=== PATIENT | female | born 1995 | race African-American/Black ===

== ENCOUNTER 2020-12-03 06:28 | Emergency (ER) | payer OTHER ==
--- NOTE | 2020-12-03 06:44 | ED Physician Documentation ---
PD HPI NECK PAIN - Stated complaint Stated Complaint: NECK PX - Chief complaint Chief Complaint: Trauma Hd/Nk - History obtained from History obtained from: Patient - History of Present Illness Timing - onset: Today (awoke with left upper neck sharp pain with ROM this morning. No noted injury. Feeling well otherwise. Pain goes to suprascapular area. No numbness nor weakness of arm. No headache. Hurts with ROM.) Timing - duration: Hours Timing - details: Abrupt onset, Still present Location: Upper, Left Quality: Pain, Sharp Associated symptoms: No: Fever, Weakness, Numbness Worsened by: Movement, Palpation Contributing factors: No: Lifting, Twisting, Trauma Similar symptoms before: Has not had sx before Recently seen: Not recently seen Review of Systems Constitutional: denies: Fever, Chills Nose: denies: Rhinorrhea / runny nose, Congestion Throat: denies: Sore throat Respiratory: denies: Cough Skin: denies: Rash, Lesions Neurologic: denies: Focal weakness, Numbness PD PAST MEDICAL HISTORY - Past Medical History Past Medical History: No - Present Medications Home Medications: Ambulatory Orders Medication Instructions Recorded Confirmed HYDROcod/ACETAM 5/325 [[place] 5/325] 1 ea PO Q6H PRN #10 tablet 12/03/20 tiZANidine [Zanaflex] 4 mg PO Q8H PRN #20 tablet 12/03/20 - Allergies Allergies/Adverse Reactions: Allergies Allergy/AdvReac Type Severity Reaction Status Date / Time No Known Drug Allergies Allergy Verified 12/03/20 06:35 PD ED PE NORMAL - Vitals Vital signs reviewed: Yes - General General: Alert and oriented X 3, No acute distress (appearrs okay with head still. Winces some when turning to the left and upward with head. ), Well developed/nourished - Neck Neck: Supple, no meningeal sign, No bony TTP, No adenopathy, Other (tender left upper neck muscle at trapezius insertion area and to left side medial suprascapular area. No redness, rash nor sores. Not tender to light touch. ) - Cardiac Cardiac: RRR, No murmur - Respiratory Respiratory: Clear bilaterally - Derm Derm: Normal color, Warm and dry, No rash - Neuro Neuro: Alert and oriented X 3, No motor deficit, No sensory deficit Results - Vitals Vitals: Vital Signs - 24 hr 12/03/20 12/03/20 06:30 06:59 Temperature 36.3 C L 36.4 C L Heart Rate 69 70 Respiratory 18 19 Rate Blood Pressure 128/53 L 128/59 L O2 Saturation 99 99 Oxygen O2 Source Room air PD MEDICAL DECISION MAKING - ED course Complexity details: considered differential (No red flags for more concerning cause. Has pain and tender trapezius insertion left side upper neck. ), d/w patient Departure - Departure Disposition: 01 Home, Self Care Clinical Impression: Acute strain of neck muscle Qualifiers: Encounter type: initial encounter Qualified Code(s): S16.1XXA - Strain of muscle, fascia and tendon at neck level, initial encounter Condition: Stable Record reviewed to determine appropriate education?: Yes Instructions: ED Sprain Strain Neck Follow-Up: [facility] [Provider Group] Prescriptions: HYDROcod/ACETAM 5/325 [[place] 5/325] 1 ea PO Q6H PRN #10 tablet PRN Reason: Pain tiZANidine [Zanaflex] 4 mg PO Q8H PRN #20 tablet PRN Reason: Spasms Comments: At this point this would seem like a muscle irritation/strain. Without any nerve root symptoms nor injury or other associated symptoms, there would not really be an indication for any labs or imaging at this time. This type of problem typically resolves in a couple of days. Continue the ibuprofen 600 to 800 mg 3 times a day with food. I would think heat and stretching would be useful for the area to decrease spasming and stiffness. Add tizanidine muscle relaxant to help with that as well. To that add Tylenol 6 every 4-6 hours for pain as well. You could add hydrocodone if needed for worse pain but I would not anticipate needing it beyond a day or 2. Off work for couple of days to allow time for improvement. Recheck if not improved well over the next couple of days or if other associated symptoms such as arm numbness or tingling, skin rash or sores, fever, other symptoms. I am prescribing a short course of narcotic pain medication for you. These are potentially dangerous and addictive medications that should be used carefully. These medications may constipate you. Take an [id number] stool softener such as docusate twice daily with plenty of water while taking these medications. If you go 24 hours without a bowel movement, take [id number] MiraLAX, per package instructions. Do not drink or drive while taking these medications. If you received narcotic or sedating medications while in the emergency department do not drive for 24 hours. Store this medication in a safe, secure place and out of reach of children. It is a violation of federal law to give or sell this medication to another person or to use in a manner other than prescribed. The ED will not refill narcotic prescriptions, including prescriptions lost or stolen. You can dispose of unwanted medications at the [facility] office or at several pharmacies such as [facility]. Forms: Activity restrictions Discharge Date/Time: 12/03/20 07:04
[2020-12-03] MEDS ORDERED: HYDROcod/ACETAM 5/325 MG TABLET PO STA (06:53)
[2020-12-03] MEDS ORDERED: methocarbamoL 500 MG TABLET PO STA (06:53)
[2020-12-03 07:01] VITALS: BP 128/59
== END 2020-12-03 07:04 | disposition home or self-care (01) ==
LOC: ED 06:28
DX: S16.1XXA Strain of muscle, fascia and tendon at neck level, initial encounter (principal); X58.XXXA Exposure to other specified factors, initial encounter
CPT/HCPCS: 99282; 99284; A9270

== ENCOUNTER 2021-11-10 21:07 | Emergency (ER) | payer OTHER ==
--- NOTE | 2021-11-10 21:49 | ED Physician Documentation ---
PD HPI SKIN - Stated complaint Stated Complaint: LUMP UNDER CHIN/PX - Chief complaint Chief Complaint: Heent - History obtained from History obtained from: Patient - History of Present Illness Timing - onset: Today Timing - details: Gradual onset Associated symptoms: No: Fever Similar symptoms before: Has not had sx before Recently seen: Not recently seen - Additional information Additional information: patients chief complaint is tender mass under chin since this morning. Patient has had mild sore throat and mild sinus congestion since yesterday. Yesterday evening, she noted some tenderness under her chin (the soft tissue under her chin midline between bony mandible) and since this morning the area has developed a firm lump (per patient) . She denies having this before. Review of Systems Constitutional: reports: Reviewed and negative Nose: reports: Congestion (mild) Throat: reports: Sore throat (mild). denies: Swollen tonsils PD PAST MEDICAL HISTORY - Past Medical History Past Medical History: No Cardiovascular: None Respiratory: None Neuro: None Endocrine/Autoimmune: None GI: None [employer]: None : None HEENT: None Psych: None Musculoskeletal: None Derm: None - Past Surgical History Past Surgical History: No - Present Medications Home Medications: Ambulatory Orders Medication Instructions Recorded Confirmed HYDROcod/ACETAM 5/325 [[place] 5/325] 1 ea PO Q6H PRN #10 tablet 12/03/20 tiZANidine [Zanaflex] 4 mg PO Q8H PRN #20 tablet 12/03/20 cephALEXin [Keflex] 500 mg PO Q6H #28 cap 11/10/21 - Allergies Allergies/Adverse Reactions: Allergies Allergy/AdvReac Type Severity Reaction Status Date / Time No Known Drug Allergies Allergy Verified 11/10/21 21:32 - Social History Does the pt smoke?: No Smoking Status: Never smoker Does the pt drink ETOH?: No Does the pt have substance abuse?: No - Immunizations Immunizations are current?: Yes - POLST Patient has POLST: No PD ED PE NORMAL - Vitals Vital signs reviewed: Yes - General General: Alert and oriented X 3, No acute distress, Well developed/nourished - HEENT HEENT: Moist mucous membranes, Pharynx benign - Neck Neck: Supple, no meningeal sign PD ED PE EXPANDED - HEENT HEENT Visual: 1 - tenderness (approximately 1 cm diameter midline nodule that is TTP without fluctuance or erythema.) Results - Vitals Vitals: Oxygen O2 Source Room air - Labs Labs: Microbiology 11/10/21 21:38 Group A Strep Throat Culture - Final Throat MIXED OROPHARYNGEAL OLIVIER PRESENT. NO BETA STREP PRESENT IN CULTURE. Laboratory Tests 11/10/21 21:38 Group A Strep Rapid Negative PD MEDICAL DECISION MAKING - ED course Complexity details: reviewed results, re-evaluated patient, considered dif ferential, d/w patient ED course: the area of concern is tender to palpation though not exquisitely tender. It is not fluctuant. There is no change in voice, patient is in NAD and nontoxic in general appearance. There are no intraoral findings nor c/o. Differential includes reactive lymph node, sialolithiasis. Abscess considered but unlikely given it is not particularly TTP nor fluctuant. Also considered are thyroglossal duct cyst, mucocele, ranula. She is given PO abx for possible reactive lymph node/early infected node, and instructed to follow up with PMD, return if worse Departure - Departure Disposition: 01 Home, Self Care Clinical Impression: Lymphadenitis Condition: Good Instructions: ED Cervical Adenitis Abx Tx Prescriptions: cephALEXin [Keflex] 500 mg PO Q6H #28 cap Comments: As we discussed, I suspect the painful/tender mass under your chin is a swollen lymph node. Typically this is because it is inflamed from draining a nearby infection. When the lymph node because this large and painful, it is prudent to prescribe an antibiotic to prevent worsening infection or complications of infection (such as abscess), and thus you are being given cephalexin (antibiotic) in the emergency department and a prescription for the same antibiotic is being electronically submitted to [facility] pharmacy in [place]. I would also consider possibility of a swollen salivary gland due to debris (stone) blocking the duct that empties the gland. The main (initial) treatment for this is simply sucking on sour candies such as lemon drops in order to stimulate salivation, hopefully leading to expulsion of the stone and resolution of the symptoms. If your symptoms worsen, consider returning to the emergency department or else following up with your primary care provider. Discharge Date/Time: 11/10/21 22:50
[2021-11-10 21:52] LABS: RAPID STREP SCREEN Negative (Negative)
[2021-11-10] MEDS ORDERED: cephALEXin 250 MG CAPSULE PO STA (22:40)
[2021-11-10 22:50] VITALS: BP 122/70
== END 2021-11-10 22:50 | disposition home or self-care (01) ==
LOC: ED 21:07
DX: I88.9 Nonspecific lymphadenitis, unspecified (principal)
CPT/HCPCS: 87070; 87430; 99282; 99283; A9270